=== PATIENT | male | born 1990 | race Hispanic/Latino ===

== ENCOUNTER 2019-12-14 17:52 | Emergency (ER) | payer BC ==
--- OUTSIDE RECORDS SUMMARY | 2019-12-14 22:52 | XMS REPORT ---
:1990 Author Organization eClinicalWorks Care Team Providers Name Role Phone Franky Pratt Provider Role Unavailable Allergies, Adverse Reactions, Alerts Substance Reaction Event Type N.K.D.A. 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 Assessment Subacromial bursitis of right M75.51 Active shoulder joint Medications Medication Code Code Instructions Start End Date Status Dosage System Date Cyclobenzaprine HCl [facility] 0 Active not defined Ketorolac [facility] 06931-79 Active not defined Tromethamine 33-85 Metformin HCl [facility] 39389-55 Active not defin ed 08- Vitamin D [facility] 24551-74 Active not defined (Ergocalciferol) 073 PredniSONE [facility] 38030-56 Active not defined 42-43 Results No Known Results Summary Purpose eClinicalWorks Submission
--- OUTSIDE RECORDS SUMMARY | 2019-12-14 22:52 | XMS REPORT | Continuity of Care Document ---
:1990 Author Organization [facility] t Address [address] [place] [address] Care Team Providers Name Role Phone Unavailable Unavailable Unavailable Problems Condition Condition Condition Status Onset Resolution Last Treating Co mments Source Name Details Category Date Date Treatment Clinician Date Pain in Pain in Diagnosis [facility] Arthrosis Arthrosis Diagnosis Active [facility] right of right [facility] acromiocla acromiocla [facility] moria vicular vicular l joint [facility] ent [facility] Subacromia Subacromia Diagnosis Active [facility] bursitis l bursitis Julia kes - of right of right [facility] shoulder shoulder l [facility] Allergies, Adverse Reactions, Alerts This patient has no known allergies or adverse reactions. Medications Ordered Filled Start Stop Current Ordering Indication Dosage Frequency Signature Comments Components Source Medication Medication Date Date Medication? Clinician (SIG) Name Name Cyclobenzap Cyclobenzap Yes Franky not [facility] rine HCl rine HCl Pratt defined [facility] Ketorolac Ketorolac Yes Franky not [facility] Tromethamin Tromethamin Pratt defined [facility] Metformin Metformin Yes Franky not [facility] HCl HCl Pratt defined [facility] Vitamin D Vitamin D Yes Franky not [facility] (Ergocalcif (Ergocalcif Pratt defined [facility] briana[facility] briana[facility] PredniSONE PredniSONE Yes Franky not [facility] Pratt defined [facility] Procedures This patient has no known procedures. Encounters Start End Encounter Admission Attending Care Care Encounter Source Date/Time Date/Time Type Type Clinicians Facility Department ID 2019-11-02 2019-11-02 [facility] [id number] [facility] 10[facility]00 10[facility] Results This patient has no known results.
--- NOTE | 2019-12-15 08:23 | RAD REPORT ---
EXAM DESCRIPTION: RAD - Chest Single View - 12/14/2019 10:59 pm CLINICAL HISTORY: FEVER, COUGH Chest pain. COMPARISON: CHEST PA AND LAT 2 VIEW dated 10/09/2012; CHEST SINGLE VIEW dated 04/04/2008 FINDINGS: Portable technique limits examination quality. The lungs are grossly clear. The heart is normal in size. No displaced fractures. IMPRESSION: No acute intrathoracic process suspected.
--- NOTE | 2019-12-15 10:27 | EDPHYS ---
Physician Documentation [facility] Name: Ciaran Shrestha Age: 29 yrs Sex: Male : 1990 Arrival Date: 12/14/2019 Time: 17:57 Bed 25 Private MD: FELICITY Physician Tomer Dewey HPI: 12/13 20:05 This 29 yrs old Male presents to ER via Ambulatory with complaints of Chest jmm Tightness, Cough. 20:05 The patient or guardian reports cough. Onset: The symptoms/episode began/occurred jmm gradually, 3 day(s) ago. Modifying factors: The symptoms are alleviated by nothing. the symptoms are aggravated by nothing. Associated signs and symptoms: Pertinent positives:. Patient complains of cough, congestion, fever, nausea beginnning approx 3 days ago. Coworker recently tested positive for COVID. . Historical: - Allergies: 18:13 No Known Allergies; ca1 - Home Meds: 18:13 None [Active]; ca1 - PMHx: 18:13 None; ca1 - PSHx: 18:13 None; ca1 - Immunization history:: Adult Immunizations up to date. - Social history:: Smoking status: Patient reports the use of cigarette tobacco products, denies chronic smoking, but will smoke occasionally. ROS: 20:05 Cardiovascular: Negative for chest pain, palpitations, and edema. jmm 20:05 Constitutional: Positive for fever. 20:05 Respiratory: Positive for cough. 20:05 Abdomen/GI: Positive for 20:05 All other systems are negative. Exam: 20:05 Constitutional: This is a well developed, well nourished patient who is awake, alert, jmm and in no acute distress. Head/Face: atraumatic. Eyes: EOMI, no conjunctival erythema appreciated ENT: Moist Mucus Membranes Neck: Trachea midline, Supple Chest/axilla: Normal chest wall appearance and motion. Cardiovascular: Regular rate and rhythm. No edema appreciated Respiratory: Normal respirations, no respiratory distress appreciated Abdomen/GI: Non distended, soft Back: Normal ROM Skin: General appearance color normal MS/ Extremity: Moves all extremities, no obvious deformities appreciated, no edema noted to the lower extremities Neuro: Awake and alert, normal gait Psych: Behavior is normal, Mood is normal, Patient is cooperative and pleasant Vital Signs: 18:07 BP 144 / 74; Pulse 84; Resp 16 S; Temp 98.4(TE); Pulse Ox 99% on R/A; Weight 165.56 kg ca1 (R); Height 6 ft. 0 in. (182.88 cm) (R); 21:00 BP 128 / 74; Pulse 70; Resp 16; Pulse Ox 99% on R/A; Pain 3/10; ls4 23:23 BP 148 / 92; Pulse 72; Resp 18; Temp 98.7(O); Pulse Ox 100% on R/A; lp1 18:07 Body Mass Index 49.50 (165.56 kg, 182.88 cm) ca1 MDM: 19:17 Patient medically screened. [facility] 23:05 Data reviewed: vital signs, nurses notes. Counseling: I had a detailed discussion with rosa the patient and/or guardian regarding: the historical points, exam findings, and any diagnostic results supporting the discharge/admit diagnosis, lab results, radiology results, the need for outpatient follow up, to return to the emergency department if symptoms worsen or persist or if there are any questions or concerns that arise at home. ED course: Patient is alert and non toxic in appearance in the ED. Patient is advised to follow up with pcp and otherwise given strict return precautions. Patient understood and agrees with the plan of care. . 12/13 20:03 Order name: Document PUI#; Complete Time: 21:35 [facility] 12/13 20:03 Order name: Droplet/Contact Precautions; Complete Time: 21:35 [facility] 12/13 20:03 Order name: Labs collected and sent; Complete Time: 21:35 [facility] 12/13 20:03 Order name: Notify Health Dept [id number]/ ; Complete Time: 21:35 [facility] 12/13 20:03 Order name: O2 Per Protocol; Complete Time: 21:35 [facility] Administered Medications: No medications were administered Disposition: 12/14 06:27 Co-signature as Attending Physician, Tomer Dewey MD I agree with the assessment and [facility] plan of care. Disposition: 12/14/19 23:06 Discharged to Home. Impression: Viral Infection. - Condition is Stable. - Discharge Instructions: Viral Respiratory Infection, COVID-19. - Medication Reconciliation Form, Thank You Letter, Antibiotic Education, Prescription Opioid Use, Work release form form. - Follow up: Private Physician; When: 2 - 3 days; Reason: Recheck today's complaints, Continuance of care, Re-evaluation by your physician. Signatures: Dispatcher [employer] Tomer Flores MD MD cha Mickail, Joel, PA PA [facility] Anna Phan RN RN lp1 Nabila Horton RN RN ea Acob, Cheryl RN JAIRON ca1 Corrections: (The following items were deleted from the chart) 12/13 23:26 23:06 12/14/2019 23:06 Discharged to Home. Impression: Viral Infection. Condition is lp1 Stable. Forms are Medication Reconciliation Form, Thank You Letter, Antibiotic Education, Prescription Opioid Use. Follow up: Private Physician; When: 2 - 3 days; Reason: Recheck today's complaints, Continuance of care, Re-evaluation by your physician. [facility] 23:31 23:26 12/14/2019 23:06 Discharged to Home. Impression: Viral Infection. Condition is ea Stable. Discharge Instructions: Viral Respiratory Infection, COVID-19. Forms are Medication Reconciliation Form, Thank You Letter, Antibiotic Education, Prescription Opioid Use, Work release form. Follow up: Private Physician; When: 2 - 3 days; Reason: Recheck today's complaints, Continuance of care, Re-evaluation by your physician. lp1
--- NOTE | 2019-12-15 10:27 | ER ---
Nurse's Notes [facility] Name: Ciaran Shrestha Age: 29 yrs Sex: Male : 1990 Arrival Date: 12/14/2019 Time: 17:57 Bed 25 Private MD: Diagnosis: Viral Infection Presentation: 12/13 18:07 Chief complaint: Patient states: We were told yesterday by my boss that a carlos we work ca1 with all weekend tested positive for Covid-19. But for the past 3 days, I have been having headaches, fatigue, coughing, body aches, chills. Right now, it feels really hot in the middle of my chest like it baptiste. Reports abdominal pain and nausea. Denies vomiting. Denies fever. Coronavirus screen: Patient reports a cough. Patient reports shortness of breath or difficulty breathing. Patient denies measured and/or subjective temperature greater than 100.4F prior to today's visit. Patient denies travel on a cruise ship or to a country the [facility] currently lists as an affected area. Patient reports contact with known and/or suspected case of COVID-19. Coworker pt instructed to keep mask on at all times and keep 6 feet distance away from other people in the lobby. Pt verbalized understanding. Ebola Screen: Patient negative for fever greater than or equal to 101.5 degrees Fahrenheit, and additional compatible Ebola Virus Disease symptoms Patient denies exposure to infectious person. Patient denies travel to an Ebola-affected area in the 21 days before illness onset. No symptoms or risks identified at this time. Initial Sepsis Screen: Does the patient meet any 2 criteria? No. Patient's initial sepsis screen is negative. Does the patient have a suspected source of infection? No. Patient's initial sepsis screen is negative. Risk Assessment: Do you want to hurt yourself or someone else? Patient reports no desire to harm self or others. Onset of symptoms was December 14, 2019. 18:07 Method Of Arrival: Ambulatory ca1 18:07 Acuity: WILY 3 ca1 Historical: - Allergies: 18:13 No Known Allergies; ca1 - Home Meds: 18:13 None [Active]; ca1 - PMHx: 18:13 None; ca1 - PSHx: 18:13 None; ca1 - Immunization history:: Adult Immunizations up to date. - Social history:: Smoking status: Patient reports the use of cigarette tobacco products, denies chronic smoking, but will smoke occasionally. Screenin:10 Nutritional screening: No deficits noted. Tuberculosis screening: No symptoms or risk ls4 factors identified. Fall Risk None identified. 12/14 00:58 Abuse screen: Denies threats or abuse. Denies injuries from another. ls4 Assessment: 12/13 19:00 General: Appears in no apparent distress. comfortable, Behavior is calm, cooperative. ls4 19:00 Pain: Complains of pain in generalized Pain does not radiate. Pain currently is 3 out ls4 of 10 on a pain scale. Pain: Pain began gradually. Cardiovascular: Denies chest pain, diaphoresis, fatigue, lightheadedness, nausea, palpitations, shortness of breath, syncope, vomiting. 21:00 Reassessment: Patient appears in no apparent distress at this time. Patient and/or ls4 family updated on plan of care and expected duration. Pain level reassessed. Patient is alert, oriented x 3, equal unlabored respirations, skin warm/dry/pink. 22:30 Reassessment: Patient aware of pending labs. General: Appears in no apparent distress. lp1 Behavior is calm, cooperative, appropriate for age. 23:25 Reassessment: Patient is alert, oriented x 3, equal unlabored respirations, skin lp1 warm/dry/pink. Patient demonstrates understanding of discharge instructions, self quarantine at home, discharge papers given. Vital Signs: 18:07 BP 144 / 74; Pulse 84; Resp 16 S; Temp 98.4(TE); Pulse Ox 99% on R/A; Weight 165.56 kg ca1 (R); Height 6 ft. 0 in. (182.88 cm) (R); 21:00 BP 128 / 74; Pulse 70; Resp 16; Pulse Ox 99% on R/A; Pain 3/10; ls4 23:23 BP 148 / 92; Pulse 72; Resp 18; Temp 98.7(O); Pulse Ox 100% on R/A; lp1 18:07 Body Mass Index 49.50 (165.56 kg, 182.88 cm) ca1 ED Course: 17:57 Patient arrived in ED. mr 18:12 Triage completed. ca1 18:13 Arm band placed on right wrist. ca1 19:10 No apparent distress. ls4 19:10 Patient has correct armband on for positive identification. Bed in low position. Call ls4 light in reach. Side rails up X 1. hide inspector and sorter on. Pulse ox on. NIBP on. Warm blanket given. 19:10 No provider procedures requiring assistance completed. Patient did not have IV access ls4 during this emergency room visit. Patient maintains SpO2 saturation greater than 95% on room air. 19:16 Titi Galarza PA is PHCP. [facility] 19:16 Tomer Dewey MD is Attending Physician. [facility] 19:35 Gayatri Sexton, JAIRON is Primary Nurse. ls4 22:30 Report received from JAIRON Mendieta. lp1 23:29 Primary Nurse role handed off by Gayatri Sexton RN ea Administered Medications: No medications were administered Outcome: 23:06 Discharge ordered by . [facility] 23:25 Discharged to home ambulatory. lp1 23:25 Condition: good 23:25 Discharge instructions given to patient, Instructed on discharge instructions, follow up and referral plans. Demonstrated understanding of instructions, follow-up care. 23:26 Patient left the ED. lp1 23:31 Patient left the ED. carmen Addendum: 12/17/2019 10:53 Addendum: Other pt notified of negative results via telephone, pt advised to not return i w to work until symptom free for 72 hours, and to follow up with PCP. Signatures: Titi Galarza PA PA [facility] Lasha Cara mr SmithKatia, RN JAIRON iw Anna Phan RN RN lp1 Nabila Horton RN RN ea Stewart, Lisa, RN RN 4 Senia Porter RN RN ca1
[2019-12-15 12:22] VITALS: BP 148/92; TEMP 98.7; O2SAT 100
== END 2019-12-14 23:31 | disposition home or self-care (01) ==
LOC: ER 17:52
DX: B34.9 Viral infection, unspecified (principal); Z20.828 Contact with and (suspected) exposure to other viral communicable diseases; F17.210 Nicotine dependence, cigarettes, uncomplicated
CPT/HCPCS: 87070; 87081; 87804 ×2; 71045; 99284; U0001